=== PATIENT | male | born 2000 | race Caucasian/White ===

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

== ENCOUNTER 2020-07-02 21:27 | Emergency (ER) | payer BC ==
[~2020-07-02] VITALS: Ht 188 cm; Wt 63.6 kg
[2020-07-02 21:33] VITALS: TEMP 98.4
[2020-07-03 00:40] LABS: BASO # 0.1 (0.0-0.2); BASO % 0.5 % (0.0-2.0); EOS # 0.1 (0.0-0.7); EOS % 0.5 % (0-4.0); GRAN # 10.3 (1.4-6.5); GRAN % 77.3 % (42.2-75.2); HEMATOCRIT 40.7 % (36.0-47.0); LYMPH # 2.1 (1.2-3.4); LYMPH % 15.4 % (20.0-51.0); MEAN CELL VOLUME 83 fl (80.0-95.0); MEAN CORPUSCULAR HEMOGLOBIN 29 pg (26.0-32.0); MEAN CORPUSCULAR HGB CONC 34 g/dl (33.0-37.0); MEAN PLATELET VOLUME 9.3 fl (7.4-10.4); MONO # 0.8 (0.1-0.6); PLATELET COUNT 259 K/mm3 (130-400); REDCELL DISTRIBUTION WIDTH-CV 11.9 % (11.5-14.5)
[2020-07-03 00:53] LABS: ALBUMIN 4.9 gm/dL (3.5-5.0); CALCIUM 9.7 mg/dL (8.4-10.2); CREATININE, serum 1.02 (0.66-1.25); POTASSIUM 4.4 mmol/L (3.4-5.0); TOTAL PROTEIN 7.8 gm/dL (6.4-8.2)
[2020-07-03 01:23] VITALS: BP 112/64; PULSE 66
== END 2020-07-03 01:23 | disposition home or self-care (01) ==
LOC: COL.ER 21:27
PROVIDERS: Nurse Practitioner
DX: F41.0 Panic disorder [episodic paroxysmal anxiety] (principal); F32.9 Major depressive disorder, single episode, unspecified

== ENCOUNTER 2020-08-05 15:34 | Emergency (ER) | payer BC ==
[~2020-08-05] VITALS: Ht 190.5 cm; Wt 59.1 kg
[2020-08-05 15:39] VITALS: TEMP 98.4
[2020-08-05 15:56] LABS: BASO # 0.1 (0.0-0.2); BASO % 0.6 % (0.0-2.0); EOS # 0.1 (0.0-0.7); EOS % 0.8 % (0-4.0); GRAN # 8.6 (1.4-6.5); GRAN % 69.1 % (42.2-75.2); HEMATOCRIT 45.9 % (36.0-47.0); HEMOGLOBIN 15.4 g/dl (12.5-16.1); LYMPH # 2.7 (1.2-3.4); LYMPH % 21.5 % (20.0-51.0); MEAN CELL VOLUME 85 fl (80.0-95.0); MEAN CORPUSCULAR HEMOGLOBIN 29 pg (26.0-32.0); MEAN CORPUSCULAR HGB CONC 34 g/dl (33.0-37.0); MEAN PLATELET VOLUME 8.9 fl (7.4-10.4); MONO % 7.7 % (1.7-9.3); PLATELET COUNT 340 K/mm3 (130-400); RED BLOOD COUNT 5.39 M/mm3 (4.20-5.60)
[2020-08-05 16:07] LABS: ALANINE AMINOTRANSFERASE 20 U/L (4-49); ALBUMIN 5.1 gm/dL (3.5-5.0); ALKALINE PHOSPHATASE 56 U/L (50-136); ANION GAP 11 mmol/L (7-16); AST,SGOT 30 U/L (15-37); BILIRUBIN,TOTAL 0.6 mg/dL (0.0-1.0); BLOOD UREA NITROGEN 13 mg/dL (9-20); CALCIUM 10.2 mg/dL (8.4-10.2); CARBON DIOXIDE 31 mmol/L (22-30); CHLORIDE 100 mmol/L (98-107); CREATININE, serum 0.85 (0.66-1.25); GLUCOSE 100 mg/dL (74-106); SODIUM 142 mmol/L (137-145); TOTAL PROTEIN 8.1 gm/dL (6.4-8.2)
[2020-08-05 16:22] LABS: TROPONIN-I < 0.012 ng/mL (0.000-0.035)
[2020-08-05] MEDS ORDERED: INDERAL 20MG20 MG PO (17:20)
[2020-08-05 17:34] VITALS: BP 133/82; PULSE 71
== END 2020-08-05 17:39 | disposition home or self-care (01) ==
LOC: COL.ER 15:34
PROVIDERS: Emergency Medicine
DX: R00.2 Palpitations (principal); I25.10 Atherosclerotic heart disease of native coronary artery without angina pectoris; Z79.899 Other long term (current) drug therapy; Z79.52 Long term (current) use of systemic steroids